=== PATIENT | male | born 1950 | race Caucasian/White ===

== ENCOUNTER 2023-03-07 11:07 | Emergency (ER) | payer MEDICARE, BC ==
[2023-03-07] MEDS: Losartan 50 MG Tab PO ONE (11:42)
[2023-03-07 12:22] VITALS: PULSE 64
[2023-03-07 12:30] VITALS: BP 172/90
== END 2023-03-07 12:55 | disposition home or self-care (01) ==
LOC: LL.ED 11:07
DX: I10 Essential (primary) hypertension (principal); I25.10 Atherosclerotic heart disease of native coronary artery without angina pectoris; E78.00 Pure hypercholesterolemia, unspecified; I25.2 Old myocardial infarction; K21.9 Gastro-esophageal reflux disease without esophagitis; J44.9 Chronic obstructive pulmonary disease, unspecified; Z79.899 Other long term (current) drug therapy; Z79.82 Long term (current) use of aspirin; Z79.84 Long term (current) use of oral hypoglycemic drugs
CPT/HCPCS: 36415; 80053; 85025; 99283; 99284; A9270-GY

== ENCOUNTER 2024-08-27 15:30 | Emergency (ER) | payer MEDICARE ==
[2024-08-27 15:53] LABS: BASOPHILS ABSOLUTE AUTO 0.04 K/uL (0.00-0.20); BASOPHILS PERCENT AUTO 0.3 % (0.0-2.0); EOSINOPHILS ABSOLUTE AUTO 0.44 K/uL (0.00-0.50); EOSINOPHILS PERCENT AUTO 3.7 % (0.0-5.0); HEMATOCRIT 42.1 % (39.0-49.0); HEMOGLOBIN 14.5 g/dL (13.1-16.8); LYMPHOCYTES ABSOLUTE AUTO 2.11 K/uL (0.50-3.50); LYMPHOCYTES PERCENT AUTO 17.8 % (10.0-50.0); MEAN CORPUSCULAR HEMOGLOBIN 35.5 pg (28.2-33.3); MEAN CORPUSCULAR HGB CONC 34.4 g/dL (31.7-36.0); MEAN CORPUSCULAR VOLUME 102.9 fL (84.0-98.0); MONOCYTES ABSOLUTE AUTO 2.14 K/uL (0.00-1.00); MONOCYTES PERCENT AUTO 18.1 % (2.0-14.0); NEUTROPHILS ABSOLUTE AUTO 7.12 K/uL (1.40-7.00); NEUTROPHILS PERCENT AUTO 60.1 % (45.0-80.0); PLATELET COUNT,PLT 498 K/uL (150-350); RED BLOOD CELL COUNT 4.09 M/uL (4.33-5.41); RED CELL DISTRIBUTION WIDTH 13.6 % (11.2-14.1); WHITE BLOOD CELL COUNT,WBC 11.9 K/uL (4.0-10.2)
[2024-08-27 16:13] LABS: LACTIC ACID 1.2 mmol/L (0.4-2.0)
[2024-08-27 16:22] LABS: ALBUMIN 3.2 g/dL (3.4-5.0); BILIRUBIN TOTAL 0.6 mg/dL (0.2-1.0); CALCIUM 11.4 mg/dL (8.5-10.1); CARBON DIOXIDE,CO2 33.3 mmol/L (21.0-32.0); CREATININE 1.3 mg/dL (0.51-1.17); EST CRCL DRUG DOSING (CG) 39.08 mL/min; POTASSIUM,K 4.8 mmol/L (3.5-5.1); PROTEIN TOTAL,TP 7.3 g/dL (6.4-8.2)
[2024-08-27 16:23] LABS: ANION GAP 9.5 meq/L (7-15)
[2024-08-27 17:11] LABS: BILIRUBIN,URINE NEGATIVE (NEGATIVE); COLOR,URINE YELLOW; GLUCOSE,URINE NEGATIVE (NEGATIVE); KETONES,URINE NEGATIVE (NEGATIVE); LEUKOCYTE ESTERASE,URINE SMALL (NEGATIVE); NITRITE,URINE NEGATIVE (NEGATIVE); OCCULT BLOOD,URINE NEGATIVE (NEGATIVE); PROTEIN,URINE NEGATIVE (NEGATIVE); UROBILINOGEN,URINE 0.2 E.U./dL (0.2-1.0)
[2024-08-27 17:18] LABS: APPEARANCE,URINE SLIGHTLY CLOUDY; RBC,URINE 0-5 /HPF
[2024-08-27 17:23] VITALS: BP 163/84; PULSE 100
== END 2024-08-27 17:38 | disposition home or self-care (01) ==
LOC: LL.ED 15:30
DX: K59.00 Constipation, unspecified (principal); I25.10 Atherosclerotic heart disease of native coronary artery without angina pectoris; E78.00 Pure hypercholesterolemia, unspecified; I10 Essential (primary) hypertension; I25.2 Old myocardial infarction; J44.9 Chronic obstructive pulmonary disease, unspecified; E11.9 Type 2 diabetes mellitus without complications; F17.210 Nicotine dependence, cigarettes, uncomplicated
CPT/HCPCS: 36415; 74019; 80053; 81001; 83605; 85025; 87086; 99284